=== PATIENT | female | born 1945 | race Caucasian/White ===

== ENCOUNTER 2023-12-25 16:48 | Emergency (ER) | payer MEDICARE ==
[~2023-12-25] VITALS: Ht 167.6 cm; Wt 113.6 kg
[~2023-12-25 16:48] MED LIST: ADVIL200 MG PO; ALENDRONATE SOD70 MG PO; B-12 DOTS500 MCG PO; CALCIUM + D SO1 EACH PO; D-20002000 UNIT PO; LEVOTHYROXINE25 MCG PO; [UNRECOGNIZED DRUG - OTHER] PO
[2023-12-25 18:35] VITALS: BP 154/66
== END 2023-12-25 18:37 | disposition home or self-care (01) ==
LOC: ED 16:48
DX: Z48.00 Encounter for change or removal of nonsurgical wound dressing (principal); S91.001A Unspecified open wound, right ankle, initial encounter; Z91.040 Latex allergy status; Z79.890 Hormone replacement therapy; Z79.899 Other long term (current) drug therapy; X58.XXXA Exposure to other specified factors, initial encounter
CPT/HCPCS: 73610; 99283